=== PATIENT | male | born 1945 | race Caucasian/White ===

== ENCOUNTER → 2024-03-08 07:14 | Outpatient (REF) | payer MEDICARE, OTHER, SELFPAY | LOC: DHCBC/DCA 07:14 | PROVIDERS: ATTENDING PHYSICIAN Internal Medicine Cardiovascular Disease; FAMILY PHYSICIAN Family Medicine Geriatric Medicine | DX: I47.10 Supraventricular tachycardia, unspecified (principal); R07.89 Other chest pain | CPT/HCPCS: 78452; 93017; A9500; J2785 ==